=== PATIENT | female | born 1980 | race Two or more races ===

== ENCOUNTER 2017-11-21 08:58 | Outpatient (CLI) | payer OTHER | END 2017-11-21 09:12 | disposition home or self-care (01) | LOC: RX STUDY 08:58 | DX: R10.13 Epigastric pain (principal); R63.4 Abnormal weight loss ==

== ENCOUNTER 2017-11-21 09:02 | Outpatient (CLI) | payer OTHER | END 2017-11-21 09:11 | disposition home or self-care (01) | LOC: SONOGRAMA 09:02 → MAMO-SONO 10:00 | DX: R10.11 Right upper quadrant pain (principal) ==

== ENCOUNTER → 2020-09-08 | Outpatient (CLI) | payer OTHER | END | disposition home or self-care (01) | LOC: OFIC 805 10:45 | PROVIDERS: ATTEND Otolaryngology | DX: J39.2 Other diseases of pharynx (principal); R07.0 Pain in throat ==

== ENCOUNTER → 2020-09-14 | Outpatient (CLI) | payer OTHER | END | disposition home or self-care (01) | LOC: OFIC 805 12:45 | PROVIDERS: ATTEND Otolaryngology | DX: J39.2 Other diseases of pharynx (principal); R07.0 Pain in throat ==

== ENCOUNTER 2020-10-04 11:11 | Outpatient (CLI) | payer OTHER ==
[2020-10-16] MEDS ORDERED: PROTONIX40 MG PO (09:11)
[2020-10-16] MEDS ORDERED: HYDROCORTISONE (09:11)
[2020-10-16] MEDS ORDERED: LEVOTHYROXINE25 MCG PO (09:13)
[2020-10-16] MEDS ORDERED: ALL DAY ALLERGY10 M3 PO (09:13)
[2020-10-16] MEDS ORDERED: CHLORTHALIDONE25 MG PO (09:13)
== END 2020-10-06 08:44 | disposition home or self-care (01) ==
LOC: OFIC 805 11:11
PROVIDERS: ATTEND Otolaryngology
DX: K13.79 Other lesions of oral mucosa (principal); R07.0 Pain in throat; J39.2 Other diseases of pharynx

== ENCOUNTER 2020-10-23 05:35 | Day surgery (SDC) | payer OTHER ==
[~2020-10-23 05:35] MED LIST: ALL DAY ALLERGY10 M3 PO; CHLORTHALIDONE25 MG PO; HYDROCORTISONE; LEVOTHYROXINE25 MCG PO; PROTONIX40 MG PO
== END 2020-10-23 13:05 | disposition home or self-care (01) ==
LOC: CIR.AMB 05:35
PROVIDERS: ATTEND Otolaryngology
DX: D10.39 Benign neoplasm of other parts of mouth (principal); Z20.822 Contact with and (suspected) exposure to COVID-19

== ENCOUNTER 2020-11-07 10:58 | Outpatient (CLI) | payer OTHER | END 2020-11-07 14:28 | disposition home or self-care (01) | LOC: OFIC 805 10:58 | PROVIDERS: ATTEND Otolaryngology | DX: J39.2 Other diseases of pharynx (principal); R07.0 Pain in throat; K13.79 Other lesions of oral mucosa ==